=== PATIENT | female | born 1970 | race Caucasian/White ===

== ENCOUNTER 2016-07-09 08:53 | Emergency (ER) | payer MEDICAID ==
[2016-07-09] MEDS ORDERED: ONDANSETRON ODT 4 MG TAB.RAPDIS ONE (09:31)
--- NOTE | 2016-07-09 10:59 | ER NURSING DOCUMENTATION ---
Nurse's Notes [facility] Name:Denisse Mitchell Age:46 yrs Sex:Female :1970 Arrival Date:07/09/2016 Time:08:53 Bed4 Private MD:Erum Teixeira Diagnosis:Fecal Impaction;Constipation Presentation: 07/09 08:56 Acuity: DARYL 3 tg 08:59 Presenting complaint: Patient states: "I'mnot having bowel movements since ). tg Tried many stool softeners/laxatives. Difficult to urinate now, ABD pain. No vomiting. Transition of care: patient was not received from another setting of care. Notified ED Physician of patient's arrival and CC Dr. Aparicio notified. 08:59 Method Of Arrival: Private Vehicle tg Triage Assessment: 09:10 General: Appears uncomfortable, Behavior is cooperative, flat. Pain: Complains of pain tg in right lower quadrant and left lower quadrant. Neuro: Level of Consciousness is awake, alert. Cardiovascular: Capillary refill < 3 seconds. Respiratory: Respiratory effort is even, unlabored. GI: Reports lower abdominal pain, constipation, nausea, Denies vomiting. :. Derm: Skin is pale. 09:12 GI: Bowel sounds present in right upper quadrant, left upper quadrant and right lower tg quadrant diminished in left lower quadrant. Historical: - Allergies: Lyrica; Cymbalta; Neurontin; - Home Meds: 1. Ativan Oral 2. Valium Oral 3. Baclofen Oral 4. pro air 5. Methimazole Oral 6. Valium Oral 7. [place] Oral - PMHx: Medication Poisoning, Unspecified Drug or Medicinal Substance (March 24, 2016); neuropathy; Graves; - PSHx: HYSTERECTOMY; - Tetanus: < 10 years. - Ebola Screening: : Patient negative for fever greater than or equal to 101.5 degrees Fahrenheit, and additional compatible Ebola Virus Disease symptoms. Patient denies exposure to infectious person. Patient denies travel to an Ebola-affected area in the 21 days before illness onset. No symptoms or risks identified at this time. . - Immunization history: Flu Vaccine >1 year. - Social history: Smoking status: Patient uses tobacco products, current every day smoker. Screenin:02 Infectious Disease Risk Unable to Obtain. Abuse screen: Denies threats or abuse. Denies tg injuries from another. Nutritional screening: No deficits noted. Assessment: 09:41 Reassessment: Pt declined offer for a female RN to assist with soap suds enema tg procedure. . Vital Signs: 09:09 BP 124 / 74; Pulse 88; Resp 16; Temp 98.7(O); Pulse Ox 91% on R/A; Weight 72.57 kg (R); tg Height 5 ft. 4 in. (162.56 cm); Pain 7/10; 10:57 Pulse 84; Resp 16; Pain 5/10; tg 09:09 Body Mass Index 27.46 (72.57 kg, 162.56 cm) tg [place] Coma Score: 09:00 Eye Response: spontaneous(4). Verbal Response: oriented(5). Motor Response: obeys cd commands(6). Total: 15. ED Course: 08:54 Patient arrived in ED. ds 08:55 Erum Teixeira is Private Physician. ds 08:56 Michael Choe RN is Primary Nurse. tg 08:56 Triage completed. tg 09:12 Arm band placed on Bed in low position Gowned HOB Elevated. tg 09:12 Valuables Remains with patient. tg 09:32 Omar Aparicio MD is Attending Physician. cd 09:32 Erum Teixeira is Referral Physician. cd 10:47 Soap suds enema given. Patient tolerated well Pt reports successful BM, feeling better, tg ready to go home. . Administered Medications: 09:23 Drug: Zofran 4 mg; Route: PO; tg 10:57 Follow up: Response: Nausea is decreased tg Outcome: 09:33 Discharge ordered by . cd 10:57 Discharged to home ambulatory, with cane, with daughter. Able to ambulate across room tg to wheelchair. 10:57 Condition: stable 10:57 Discharge Assessment: Patient awake and alert. 10:57 Instructed on discharge instructions, follow up and referral plans. 10:58 Patient left the ED. tg Signatures: Michael Choe RN RN tg Srot, Hayley, Reg Reg ds Omar Aparicio MD MD cd
--- NOTE | 2016-07-09 10:59 | ER PHYSICIAN DOCUMENTATION ---
Physician Documentation [facility] Name:Denisse Mitchell Age:46 yrs Sex:Female :1970 Arrival Date:07/09/2016 Time:08:53 Bed4 Private MD:Erum Teixeira ED, Chris Disposition: 07/09/16 09:33 Discharged to Home/Self Care. Impression: Fecal Impaction, Constipation. - Condition is Good. - Discharge Instructions: FECAL IMPACTION, Treated. - Medical Reconciliation form form. - Follow up: Erum Teixeira; When: 7 - 10 days; Reason: Recheck today's complaints, Continuance of care. - Problem is an acute exacerbation. - Symptoms are resolved. - Notes: Drink 2 - 3 quarts of water every day. Take Metamucil every morning as long as you are on narcotics. Take Ducosylate Sodium 240mg by mouth twice a day. Eat prunes every day or prune juice. HPI: 07/09 09:00 This 46 yrs old Female presents to ER via Private Vehicle with complaints of cd Constipation. 09:00 The patient presents with constipation, the patient or guardian reports hard stools. cd Onset: The symptoms/episode began/occurred acutely, 3 day(s) ago. The symptoms do not radiate. Associated signs and symptoms: none. The patient has experienced a previous episode. Historical: - Allergies: Lyrica; Cymbalta; Neurontin; - Home Meds: 1. Ativan Oral 2. Valium Oral 3. Baclofen Oral 4. pro air 5. Methimazole Oral 6. Valium Oral 7. [place] Oral - PMHx: Medication Poisoning, Unspecified Drug or Medicinal Substance (March 24, 2016); neuropathy; Graves; - PSHx: HYSTERECTOMY; - Tetanus: < 10 years. - Ebola Screening: : Patient negative for fever greater than or equal to 101.5 degrees Fahrenheit, and additional compatible Ebola Virus Disease symptoms. Patient denies exposure to infectious person. Patient denies travel to an Ebola-affected area in the 21 days before illness onset. No symptoms or risks identified at this time. . - Immunization history: Flu Vaccine >1 year. - Social history: Smoking status: Patient uses tobacco products, current every day smoker. ROS: 09:00 Cardiovascular: Negative for chest pain, palpitations, edema and pleuritic pain. cd Respiratory: Negative for shortness of breath, dyspnea on exertion, cough, sputum production, wheezing, hemoptysis and pleuritic chest pain. 09:00 Back: Negative for injury, pain or muscle spasms. cd 09:00 Constitutional: Positive for poor PO intake, Negative for chills, fever. 09:00 Abdomen/GI: Positive for abdominal pain, constipation, anorexia, Negative for nausea, vomiting. 09:00 All other systems are negative. Exam: 09:00 Back: No spinal tenderness. No costovertebral tenderness. Full range of motion. cd 09:00 Constitutional: The patient appears alert, awake, non-diaphoretic, non-toxic, well developed, well nourished, anxious, in obvious distress, mildly distressed. 09:00 Cardiovascular: Exam negative for acute changes, Pulses: no pulse deficits are appreciated. 09:00 Respiratory: Exam negative for acute changes. 09:00 Abdomen/GI: Inspection: abdomen appears normal, Bowel sounds: diminished, Palpation: mild abdominal tenderness, in the left lower quadrant, Rectal exam: rectal tone normal, Stool: guaiac negative, fecal impaction, that is moderate, the exam is chaperoned by the nurse, Indicators: McBurney's point is not tender. Vital Signs: 09:09 BP 124 / 74; Pulse 88; Resp 16; Temp 98.7(O); Pulse Ox 91% on R/A; Weight 72.57 kg (R); tg Height 5 ft. 4 in. (162.56 cm); Pain 7/10; 10:57 Pulse 84; Resp 16; Pain 5/10; tg 09:09 Body Mass Index 27.46 (72.57 kg, 162.56 cm) tg [place] Coma Score: 09:00 Eye Response: spontaneous(4). Verbal Response: oriented(5). Motor Response: obeys cd commands(6). Total: 15. MDM: 09:05 Data interpreted: Pulse oximetry: on room air is 91 %. Interpretation: normal. cd Counseling: I had a detailed discussion with the patient and/or guardian regarding: the historical points, exam findings, and any diagnostic results supporting the discharge/admit diagnosis, the need for outpatient follow up, for a recheck, with the patient's primary care provider, to return to the emergency department if symptoms worsen or persist or if there are any questions or concerns that arise at home. 09:15 Differential diagnosis: Constipation secondary to fecal impaction. cd 09:30 Data reviewed: vital signs, nurses notes, old medical records, and as a result, I will cd discharge patient, after Soap suds enemas. 09:32 Patient medically screened. cd 10:20 Response to treatment: the patient's symptoms have markedly improved after treatment, cd the patient's condition has returned to base line, and as a result, I will discharge patient. 07/09 09:16 Order name: Enema: Soap Suds; Complete Time: 09:41 tg Dispensed Medications: 09:23 Drug: Zofran 4 mg; Route: PO; tg 10:57 Follow up: Response: Nausea is decreased tg Signatures: Michael Choe RN RN tg Omar Aparicio MD MD cd
== END 2016-07-09 10:59 | disposition home or self-care (01) ==
LOC: ER 08:53
DX: K56.41 Fecal impaction (principal); K59.00 Constipation, unspecified; R10.32 Left lower quadrant pain; Z79.899 Other long term (current) drug therapy; F17.210 Nicotine dependence, cigarettes, uncomplicated
CPT/HCPCS: 99284